=== PATIENT | male | born 1960 | race Caucasian/White ===

== ENCOUNTER 2024-03-23 08:42 | Inpatient (IN) | payer BC, OTHER ==
[~2024-03-23] VITALS: Ht 190.5 cm; Wt 116.2 kg
[2024-03-23] VITALS (8 sets, daily range): BP systolic 131–147; BP diastolic 75–86; PULSE 75–79; TEMP 98.3–98.4; O2SAT 88–96
[2024-03-23 09:21] LABS: BASO # 0.1 K/mm3 (0.0-0.2); BASO % 0.6 % (0.0-2.0); EOS # 0.4 K/mm3 (0.0-0.7); EOS % 4.7 % (0.0-4.0); GRAN % 58.8 % (42.2-75.2); HEMATOCRIT 47.8 % (42.0-52.0); HEMOGLOBIN 16.3 g/dl (13.5-18.0); LYMPH # 2.3 K/mm3 (1.2-3.4); LYMPH % 26.5 % (20.0-51.0); MEAN CELL VOLUME 90 fl (80.0-100.0); MEAN CORPUSCULAR HEMOGLOBIN 31 pg (27-31); MEAN CORPUSCULAR HGB CONC 34 g/dl (33.0-37.0); MONO # 0.8 K/mm3 (0.1-0.6); MONO % 9.2 % (1.7-9.3); PLATELET COUNT 128 K/mm3 (130-400); RED BLOOD COUNT 5.34 M/mm3 (4.20-5.60); REDCELL DISTRIBUTION WIDTH-CV 12.2 % (11.5-14.5)
[2024-03-23 09:32] LABS: ALBUMIN 3.8 g/dL (3.4-4.8); CALCIUM 9.4 mg/dL (8.4-10.2); CREATININE, serum 1.22 mg/dL (0.72-1.25); POTASSIUM 3.9 mEq/L (3.5-4.5); TOTAL PROTEIN 6.7 g/dl (6.2-8.1)
[2024-03-23 09:42] LABS: TROPONIN-I 0.034 ng/mL (0.00-0.033)
[2024-03-23] MEDS ORDERED: NS 100 ML IV SCH (09:55)
[2024-03-23] MEDS ORDERED: Iohexol 300 - 100 ML VIAL IV ONE (09:55)
[2024-03-23] MEDS ORDERED: Heparin 5,000 UNITS/ML 1 ML VIAL IV ONE (10:45)
[2024-03-23] MEDS ORDERED: Heparin 5,000 UNITS/ML 1 ML VIAL IV PRN (10:45)
[2024-03-23] MEDS ORDERED: Heparin/D5W 250 ML IV SCH (10:45)
[2024-03-23 11:46] LABS: HEMATOCRIT 46.2 % (42.0-52.0); HEMOGLOBIN 16.4 g/dl (13.5-18.0); MEAN CELL VOLUME 87 fl (80.0-100.0); MEAN CORPUSCULAR HEMOGLOBIN 31 pg (27-31); MEAN CORPUSCULAR HGB CONC 36 g/dl (33.0-37.0); MEAN PLATELET VOLUME 9.7 fl (7.4-10.4); PLATELET COUNT 139 K/mm3 (130-400); RED BLOOD COUNT 5.32 M/mm3 (4.20-5.60); REDCELL DISTRIBUTION WIDTH-CV 12.2 % (11.5-14.5)
[2024-03-23 11:53] LABS: INR 1.1 (0.8-3.0); PROTHROMBIN TIME 12.3 SECONDS (9.7-12.8)
[2024-03-23] MEDS ORDERED: Enoxaparin 120 MG/0.8 ML SYRINGE SQ ONE (12:10)
[2024-03-23] MEDS ORDERED: Enoxaparin 120 MG/0.8 ML SYRINGE SQ SCH (14:00)
[2024-03-23] MEDS ORDERED: Acetaminophen 500 MG TAB PO PRN (14:30)
[2024-03-23] MEDS ORDERED: Morphine 4 MG/ML VIAL IV PRN (14:30)
[2024-03-23] MEDS ORDERED: oxyCODONE 5 MG TAB PO PRN (14:30)
[2024-03-23] MEDS ORDERED: Ondansetron 4 MG/2 ML VIAL IV PRN (14:30)
--- NOTE | 2024-03-23 19:15 | NUR ---
Received report from JUAN Young. Patient resting quietly in bed. Family at bedside. Vitals within normal limits. Patient denies pain or discomfort. No IVF or medications infusing at this time. Patient continues to receive 2L oxygen via nasal cannula, tolerating well.
[2024-03-23] MEDS ORDERED: Atorvastatin 20 MG TAB PO SCH (21:00)
[2024-03-24] VITALS (16 sets, daily range): BP systolic 108–159; BP diastolic 65–95; PULSE 58–82; TEMP 98–98.9; O2SAT 92–95
[2024-03-24 05:24] LABS: BASO # 0.1 K/mm3 (0.0-0.2); BASO % 0.5 % (0.0-2.0); EOS # 0.3 K/mm3 (0.0-0.7); EOS % 2.4 % (0.0-4.0); GRAN # 7.2 K/mm3 (1.4-6.5); GRAN % 65.1 % (42.2-75.2); HEMATOCRIT 46.8 % (42.0-52.0); HEMOGLOBIN 16.3 g/dl (13.5-18.0); LYMPH # 2.5 K/mm3 (1.2-3.4); LYMPH % 22.3 % (20.0-51.0); MEAN CELL VOLUME 87 fl (80.0-100.0); MEAN CORPUSCULAR HEMOGLOBIN 30 pg (27-31); MEAN CORPUSCULAR HGB CONC 35 g/dl (33.0-37.0); MEAN PLATELET VOLUME 10.1 fl (7.4-10.4); MONO % 9.3 % (1.7-9.3); PLATELET COUNT 132 K/mm3 (130-400); REDCELL DISTRIBUTION WIDTH-CV 12.3 % (11.5-14.5)
[2024-03-24 05:46] LABS: CREATININE, serum 1.07 mg/dL (0.72-1.25); POTASSIUM 4.3 mEq/L (3.5-4.5)
[2024-03-24 06:03] LABS: TROPONIN-I 0.268 ng/mL (0.00-0.033)
--- NOTE | 2024-03-24 07:00 | NUR ---
Report received from JUAN Polk. Reviewed labs and inital events. Pt had uneventful night. Pt denies any pain or shortness of breath, pt is on 2L NC. Pt denies any chest pain. Pt denies any other needs at this time. Call light within reach. Will continue not at this time.
--- NOTE | 2024-03-24 10:27 | NUR ---
Initial visit; Patient and his thanked Business Account Manager for looking in on him and offering Spiritual Care. They were very kind and thanked Business Account Manager for coming in and the work that we all do here at [facility]. Business Account Manager thanked them for coming to our hospital. They mentioned they had a [facility] home and were taken care of Spiritually but thanked Business Account Manager for asking.
[2024-03-24] MEDS ORDERED: DOXYCYCLINE 10100 MG PO (10:34)
[2024-03-24] MEDS ORDERED: ZYRTEC 10MG10 MG PO (10:34)
[2024-03-24] MEDS ORDERED: ZOCOR 20MG20 MG PO (10:34)
[2024-03-24] MEDS ORDERED: SUDAFED 24-HOU240 MG PO (10:34)
[2024-03-24] MEDS ORDERED: B-121000 MCG PO (10:35)
[2024-03-24] MEDS ORDERED: NASACORT OTC NS (10:35)
--- NOTE | 2024-03-24 11:24 | NUR ---
bulbs farmworker met with pt and his , Yessica [phone] to discuss discharge planning. He reports to live with his in [place]. He sees Dr. Lagunas for PCP needs [facility]. Pt confirmed to have [employer] insurance. He is independent with ADLS and uses no DME. Pt believes he will need oxygen upon discharge. He has no preference on home medical agency and was agreeable to [facility]. Pt reports his DPOA-HC is at home listing his as primary. will work to obtain this from home. SHERLYN spoke with JUAN Mcginnis who reports pt is independent. SHERLYN spoke with Dr. Rodriguez who states pt has floor orders and will need oxygen upon discharge. Discharge Plan: home with O2
[2024-03-24] MEDS ORDERED: Cetirizine 10 MG TAB PO SCH (11:26)
[2024-03-24] MEDS ORDERED: Benzonatate 100 MG CAP PO PRN (11:30)
--- NOTE | 2024-03-24 13:55 | NUR ---
PATIENT CAME FROM ICU. PATIENT ON ROOM AIR SATURATION AT 92%. PATIENT DENIES PAIN, SOB, CHEST DISCOMFORT, DIZZINESS AT THIS TIME. PATIENT FAMILY AT BEDSIDE. PATIENT SHIFT ASSESSMENT COMPLETED. CALL LIGHT WITHIN REACH. BED AT LOWEST POSITION.
--- NOTE | 2024-03-24 17:00 | NUR ---
PATIENT ESCORTED OUT OF UNIT BY THIS NURSE IN HIS MOTORIZED CHAIR. PATIENT MOTHER RECEIVED PATIENT AT EMERGENCY ENTRANCE.
--- NOTE | 2024-03-24 20:33 | NUR ---
PT PLACED ON 2L NC TO MAINTAIN SATS GREATER THAN 92%. PT WAS SATTING 88% ON RA.
--- NOTE | 2024-03-24 21:40 | NUR ---
PATIENT RESTING IN BED WITH EYES CLOSED, EASILY ROUSED. DENIES PAIN. CALL LIGHT WITHIN REACH. BED LOCKED AND IN LOW POSITION. DENIES ANY OTHER NEEDS AT THIS TIME.
[2024-03-25] VITALS (7 sets, daily range): BP systolic 107–151; BP diastolic 66–85; PULSE 61–65; TEMP 97.8–98.7
--- NOTE | 2024-03-25 09:24 | NUR ---
Patient is resting in bed, alert and oriented x4, expecting to go home today. Denies any pain or discomfort. Assessment completed. Meds given. Finished all his meal. No further needs at this time. Call light within reach.
[2024-03-25] MEDS ORDERED: ELIQUIS 5MG PO (11:38)
--- NOTE | 2024-03-25 13:08 | NUR ---
Patient was provided with discharge information, all questions answered. IV access and telemetry were discontinued.
[2024-03-25] MEDS ORDERED: Apixaban 5 MG TABLET PO SCH (21:00)
== END 2024-03-25 13:10 | disposition home or self-care (01) | DRG 175 ==
LOC: COL.ER 08:42 → ICU 11:05 → MEDICAL 03-24 14:08
PROVIDERS: Personal Emergency Response Attendant; ADMIT Internal Medicine
DX: I26.92 Saddle embolus of pulmonary artery without acute cor pulmonale (principal); J96.01 Acute respiratory failure with hypoxia; I82.431 Acute embolism and thrombosis of right popliteal vein; I82.411 Acute embolism and thrombosis of right femoral vein; J30.1 Allergic rhinitis due to pollen; E78.00 Pure hypercholesterolemia, unspecified; L43.9 Lichen planus, unspecified; E78.5 Hyperlipidemia, unspecified; J30.2 Other seasonal allergic rhinitis
CPT/HCPCS: J1644; J1650; Q9967